=== PATIENT | male | born 1995 | race Caucasian/White ===

== ENCOUNTER 2019-01-29 23:53 | Emergency (ER) | payer SELFPAY ==
[~2019-01-29] VITALS: Ht 177.8 cm; Wt 73.9 kg
[2019-01-30 00:02] VITALS: Ht 177.8 cm; Wt 73.9 kg
[2019-01-30 01:10] LABS: BASOPHIL % 0.3 % (0-2); PLATELET COUNT 214 x10^3mcL (130-400); RED CELL DISTRIBUTION WIDTH 13.5 % (11.5-14.5)
[2019-01-30 01:24] LABS: CALCIUM 10.1 mg/dL (8.5-10.1); CARBON DIOXIDE 21.7 mmol/L (21-32); CHLORIDE SERUM 101 mmol/L (98-107); CREATININE SERUM 1.1 mg/dL (0.7-1.3); GFR1 > 60 mL/min; GLUCOSE SERUM 151 mg/dL (74-106); POTASSIUM SERUM 4.2 mmol/L (3.5-5.1); SODIUM SERUM 137 mmol/L (136-145)
[2019-01-30 01:29] LABS: ALBUMIN 4.4 g/dL (3.4-5.0); ALKALINE PHOSPHATASE 122 U/L (46-116); ALT/SGPT 51 U/L (16-63); AST/SGOT 24 U/L (15-37); BILIRUBIN TOTAL 0.88 mg/dL (0.20-1.00)
[2019-01-30 04:14] VITALS: BP 123/79
== END 2019-01-30 04:14 | disposition home or self-care (01) ==
LOC: ED 23:53
PROVIDERS: Emergency Medicine
DX: K52.9 Noninfective gastroenteritis and colitis, unspecified (principal)
CPT/HCPCS: J2405; J7030